=== PATIENT | male | born 1950 | race Caucasian/White ===

== ENCOUNTER 2024-04-22 13:39 | Emergency (ER) | payer MEDICARE, OTHER, SELFPAY ==
[2024-04-22 13:43] VITALS: BP 141/80
[2024-04-22 13:51] VITALS: BMI 27.1
[2024-04-22 14:01] VITALS: BP 157/94
--- NOTE | 2024-04-22 14:28 | ED.GENMED ---
History of Present Illness
General
Chief Complaint: Abdominal Symptoms
Source: patient and spouse
Exam Limitations: none
Time Seen by Provider: 04/22/24 14:17
Nursing documentation reviewed up to this point in time: agreed with
History of Present Illness
History of Present Illness:
74-year-old male with no reported chronic medical issues presents to the ER with his for evaluation of hiccups. Patient reports he has had a bout of hiccups for the past 2 days although he says that since arrival in the ER they seem to have
resolved. He denies any other symptoms including chest pain, abdominal pain, nausea, vomiting, coughing, shortness of breath, fevers, or any other complaints. He has never had this issue before. He says that he tried drinking sips of water at
home to avoid pickups but they were unsuccessful. He was seen in urgent care and was referred to the ER to be evaluated. He denies any new medications recently but does note that he had steroid injection in both knees a few days ago.
Review of Systems
Review of Systems
All Other Systems: ROS reviewed and negative except as documented in HPI and ROS
Constitutional: Denies fever or chills
EENT: Reports other (Hiccups)
Respiratory: Denies cough or trouble breathing
Cardiac: Denies chest pain
ABD/GI: Denies abdominal pain, nausea or vomiting
: Denies flank pain
Musculoskeletal: Denies neck pain or back pain
Neurological: Denies dizzy or headache
Phy Exam
Physical Exam
Physical Exam:
General: Awake, alert, oriented x3; no acute distress; no hiccups noted throughout entirety of exam
Head: Normocephalic, atraumatic
Eyes: Conjunctiva normal, EOMI, pupils equal round reactive to light bilaterally
Ears: TMs clear bilaterally--no cerumen impaction, hair or foreign body
Throat: Airway intact, handling secretions
Neck: Trachea midline, supple without meningismus
Lungs: Clear to auscultation bilaterally, no wheezing, rales, rhonchi
Heart: Regular rate and rhythm, no murmurs, gallops, or rubs
Abd: Soft, non distended, nontender with no palpable mass
Neuro: Cranial nerves intact, speech fluid no dysarthria or aphasia, no gross motor or sensory deficits
Skin: no rash
Extremities: No edema in extremities, equal pulses in all extremities
Scores
Heart Failure Risk
Heart Failure Risk Score: Not Applicable
Heart Score for Chest Pain Patients
STEMI patient?: Not applicable
Withdrawal Assessment of Alcohol
Withdrawal Assessment Completed?: Not applicable
Course
Orders/Labs/Results
Orders:
Orders
04/22/24 13:49
Electrocardiogram (*1) Urgent
Reason for Study: Abdominal Pain
EKG- Treatment ONCE
04/22/24 14:26
Complete Blood Count/With Diff Urgent
Comprehensive Metabolic Panel Urgent
Lipase Urgent
TSH Reflex To Free T4 Urgent
Comment: ADD ON
Troponin I Urgent
04/22/24 14:37
Add On- LAB Urgent
Tests Added?: TSH reflex to free T4
04/22/24 15:49
Metoclopramide [Reglan] 5 mg PO NOW STA
Abnormal Lab Results
04/22/24
14:26
WBC 13.6 H 10^3/uL
(4.8-10.8)
Abs Immat Gran (auto) 0.1 H 10^3/uL
(0-0.05)
Absolute Neuts (auto) 9.9 H 10^3/uL
(1.4-6.5)
Absolute Monos (auto) 1.0 H 10^3/uL
(0.1-0.6)
Immature Gran % 0.6 H %
(0-0.5)
Lymphocytes % 18.7 L %
(20.5-51.1)
Calcium 10.4 H mg/dl
(8.4-10.2)
04/22/24 14:26
04/22/24 14:26
Vital Signs
Initial and Last Documented VS:
Initial Vital Signs
Temp Pulse Resp BP Pulse Ox
36.7 C 59 18 141/80 100
04/22/24 13:43 04/22/24 13:43 04/22/24 13:43 04/22/24 13:43 04/22/24 13:43
Last Documented Vital Signs
Temp Pulse Resp BP Pulse Ox
36.7 C 62 17 144/82 96
04/22/24 13:43 04/22/24 15:30 04/22/24 15:00 04/22/24 15:00 04/22/24 15:30
MDM/Problems Addressed
Differential Diagnosis Includes:
Intractable hiccups�suspect likely steroid related however will screen for secondary causes (pancreatic disease, liver disease, heart disease, thyroid disease)
MDM/Problems Addressed:
74-year-old male with no medical history presents after a bout of hiccups that was prolonged lasting roughly 2 days but seems to have resolved by arrival here. Currently has no hiccups. Was seen in urgent care initially and was referred to the ER.
His vital signs are normal. Exam as above. He recently had steroid injections, hiccups could be steroid related. He does not have any obvious exam abnormalities to suggest emergent pathology. Will check labs including a CBC and a CMP, lipase.
Check cardiogram and troponin. No neurologic abnormalities to suggest central cause such as stroke. Certainly could be GERD related as patient is overweight and notes he will occasionally have some coughing/breathing issues when lying flat at
night. Reassess after the above.
Labs reviewed: CBC shows a leukocytosis to 13.6 likely related to recent steroid injection. CMP no clinically significant abnormalities. Troponin undetectable. Lipase normal. Thyroid studies normal. Patient did have some hiccups here that
lasted for few minutes and then resolved again. My clinical suspicion at this point is that this is likely steroid related. No abdominal pain or palpable abdominal masses and reassuring labs�no indication for abdominal imaging. Similarly no exam
abnormalities to suggest that this is neurologic and no indication for emergent head imaging at this point. Will start on some Reglan, patient has appoint with his primary care physician next week can follow-up at that point and if symptoms are
persistent consider additional testing. He is very comfortable with this plan. Spoke about return precautions all questions answered.
*Pulse Oximetry
Patient hypoxic: no
*EKG
Interpreted by ED Provider?: Yes
Heart Rate: 60
Rate: normal
Rhythm: sinus
[place]: normal axis
Interval: first degree heart block
QRS Pattern: normal QRS
Ischemia: no ischemia
*Critical Care Note
Total Time (30-74mins, 75-104mins- exclusive of procedures): Not Applicable
Data Reviewed
Review of Other/Old Records Reveals: Records
Source: patient and spouse
Further Testing Considered But Not Given:
Considered CT/MRI of the brain, considered CT abdomen pelvis (as above)
ED Attending Note
-
Portions of this chart may have been created with voice recognition software.� Occasional wrong word or��sound alike� substitutions may have occurred due to the inherent limitations of voice recognition software.
Discharge Plan
Departure
Patient Disposition: Home (Routine Discharge)
Date of Disposition: 04/22/24
Time of Disposition: 15:45
Patient with high blood pressure during this ER visit?: No
Discharge Problem:
Singultus
Instructions: Hiccups
Prescriptions:
New
metoclopramide HCl [Reglan] 10 mg tablet
10 mg PO TID Qty: 10 0RF
Referrals:
Christopher Harris MD [Family Provider] - Follow up in 1 week
Activity Restrictions/Additional Instructions:
Thank you for visiting the Emergency Department at [facility].
1. Please schedule a follow up appointment as directed. Call first thing tomorrow morning to make an appointment.
2. If indicated, please take your medications as instructed and indicated on discharge paperwork.
3. If any of your symptoms do not improve, or persist, or become more severe within 6-12 hours, please return to the emergency department for further care.
4. Please return to the emergency department if you develop a headache, neck pain/stiffness, fever greater than 100.4F, chest pain, shortness of breath, persistent nausea, vomiting, slurred speech, difficulty walking, numbness/tingling, weakness,
signs of infection or any other symptoms that are worrisome to you.
Please call [phone] if you have any questions.
Interventions
Interventions:
*Risk Screen - Suicide Last Done: 04/22/24 13:53
*General Assessment Last Done: 04/22/24 13:53
*Neglect/Abuse Screening Last Done: 04/22/24 13:53
*ED COVID-19 Vaccine History Last Done: 04/22/24 13:53
*Nursing Disposition Last Done: 04/22/24 16:08
TW-Xlghrm-Ihouozmuoh Assessment Last Done: 04/22/24 13:53
Discharge Date and Time
Discharge Date/Time: 04/22/24 16:09
Print Language: PASHTO
[2024-04-22 14:37] LABS: % Basophils 0.1 % (0-2); % Eosinophils 0.1 % (0-6); % Immature Granulocytes 0.6 % (0-0.5); % Lymphocytes 18.7 % (20.5-51.1); % Monocytes 7.3 % (1.7-9.3); % Neutrophils 73.2 % (42.2-75.2); Absolute Immature Granulocytes 0.1 10^3/uL (0-0.05); Absolute Lymphocytes 2.5 10^3/uL (1.2-3.4); Absolute Neutrophils 9.9 10^3/uL (1.4-6.5); Hematocrit 42.2 % (39.0-52.0); Hemoglobin 14.6 g/dL (13.0-18.0); Mean Corp Hgb Conc. 34.6 g/dL (33.0-37.0); Mean Corpuscular Hgb 29.6 pg (27.0-31.0); Mean Corpuscular Volume 85.6 fL (80.0-94.0); Mean Platelet Volume 9.5 fL (7.4-10.4); Nucleated Red Blood Cells % 0 % (-); Platelet Count 292 10^3/uL (130-400); Red Blood Cell Count 4.93 10^6/uL (4.70-6.10); Red Cell Dist. Width 13.3 % (11.5-14.5); White Blood Cell Count 13.6 10^3/uL (4.8-10.8)
[2024-04-22 14:52] LABS: ALT (SGPT) 33 U/L (0-50); AST (SGOT) 28 U/L (17-59); Albumin 4.7 g/dl (3.5-5.0); Alkaline Phosphatase 65 U/L (38-126); Blood Urea Nitrogen 19 mg/dl (9-20); Calcium 10.4 mg/dl (8.4-10.2); Carbon Dioxide 24 mmol/L (22-30); Chloride 104 mmol/L (98-107); Estimated Creatinine Clearance 86 ml/min; Glucose 98 mg/dl (70-99); Lipase 54 U/L (23-300); Potassium 4.2 mmol/L (3.5-5.1); Sodium 140 mmol/L (135-145); Total Bilirubin 0.4 mg/dl (0.2-1.3); Total Protein 6.8 g/dl (6.3-8.2); eGFR > 60.00
[2024-04-22 15:00] VITALS: BP 144/82
[2024-04-22 15:04] LABS: Troponin I < 0.012 ng/ml
[2024-04-22 15:28] LABS: TSH Reflex To Free T4 1.03 uIU/ml (0.47-4.68)
[2024-04-22] MEDS: REGLAN 5 MG PO (15:59)
== END 2024-04-22 16:09 | disposition home or self-care (01) ==
LOC: EMR 13:39
PROVIDERS: EMERGENCY PHYSICIAN Emergency Medicine; FAMILY PHYSICIAN Internal Medicine Geriatric Medicine
DX: R06.6 Hiccough (principal)
CPT/HCPCS: 99285; 80053; 83690; 84443; 84484; 85025; 93005